=== PATIENT | male | born 1945 | race Caucasian/White ===

== ENCOUNTER 2020-04-21 10:04 | Observation (INO) | payer MEDICARE, BC ==
[~2020-04-21] VITALS: Ht 172.7 cm; Wt 84.3 kg
--- NOTE | 2020-04-21 10:19 | NUR ---
DR CHO AT W/ BLADDER SCANNER; NO URINE RETENTION. BLOOD TINGED DRAINAGE IN PÉREZ BAG. RECENT CT AT [facility] SHOWED PROSTATE MASS. PT DENIES PROSTATE CA. PT STATES PÉREZ WAS PLACED AT [facility] LAST SUNDAY; HAS HAD BAG IRRIGATED AND DRAINED FOR PAST THREE DAYS DUE TO CLOTS. NO CLOTS NOTED IN DRAINAGE BAG CURRENTLY. DENIES ABD PAIN. REPORTS LAST BLOOD DRAW WAS YESTERDAY. STATES HE RECENTLY STOPPED HCTZ ABOUT 4-5 DAYS AGO. Addendum: 04/21/20 at 1133 by PUNEET VO: HAND IRRIGATE PÉREZ/BLADDER
[2020-04-21] MEDS ORDERED: TAMS-11 PO (10:26)
[2020-04-21] MEDS ORDERED: AMLO-150 PO (10:26)
[2020-04-21] MEDS ORDERED: LISI-424 PO (10:26)
[2020-04-21] MEDS ORDERED: HYDROCHLOROTHIAZIDE (10:27)
[2020-04-21] MEDS ORDERED: SODIUM CHLORIDE FLUSH 10ML SYR IVF ONE (10:30)
--- NOTE | 2020-04-21 10:55 | NUR ---
125ML BLOOD TINGED URINE DRAINED FROM PÉREZ BAG; NO CLOTS NOTED.
[2020-04-21 11:02] LABS: BASOPHILS % (AUTO) 0 % (0-1); EOSINOPHILS % (AUTO) 0 % (1-7); LYMPHOCYTES % (AUTO) 6 % (22-44); MEAN CORPUSCULAR HEMOGLOBIN 36.9 pg (27.5-34.5); MEAN CORPUSCULAR HGB CONC 35.5 g/dL (33.2-36.2); MEAN PLATELET VOLUME 7.5 fL (7.4-10.4); MONOCYTES % (AUTO) 6 % (2-9); NEUTROPHILS % (AUTO) 88 % (42-75); PLATELET COUNT 250 x10^3/uL (130-400); RED BLOOD COUNT 3.54 x10^6/uL (4.38-5.82); RED CELL DISTRIBUTION WIDTH 18.2 % (9.4-14.8)
[2020-04-21 11:08] LABS: INTERNATIONAL NORMALIZED RATIO 1.09 (0.93-1.1); PROTHROMBIN TIME 11.5 Seconds (9.6-11.5)
[2020-04-21 11:10] LABS: ALBUMIN 3.8 g/dL (3.4-5.0); ANION GAP 10 mmol/L (5-15); CALCIUM 9.3 mg/dL (8.5-10.1); CHLORIDE 89 mmol/L (98-107)
[2020-04-21 11:14] LABS: ALANINE AMINOTRANSFERASE 57 U/L (12-78); ALKALINE PHOSPHATASE 84 U/L (45-117); BILIRUBIN,TOTAL 0.8 mg/dL (0.2-1.0); CREATININE 0.94 mg/dL (0.7-1.3); TOTAL PROTEIN 8.4 g/dL (6.4-8.2)
--- NOTE | 2020-04-21 11:25 | NUR ---
BLADDER/PÉREZ HAND IRRIGATED W/ 300ML STERILE WATER UNTIL SLIGHT BLOOD TINGED FLUID RETURNED. PT TOLERATED PROCEDURE WELL. NEW LEG BAG ATTACHED; PT EDUCATED ON LEG BAG CARE AND PLACEMENT
[2020-04-21 11:27] LABS: ANISOCYTOSIS 1+; MD MORPH REVIEW ONLY
[2020-04-21 11:28] LABS: <PLATELET ESTIMATE> ADEQUATE; <PLT MORPHOLOGY> NORMAL PLT MORPH
[2020-04-21 11:48] LABS: MICROSCOPIC INDICATED
--- NOTE | 2020-04-21 11:55 | NUR ---
Note shawn in EDM - 04/21/20 at 1528 by PUNEET PT REFUSED TX. WALKED TO FRONT OF DEPARTMENT TO LEAVE; GENO BECK NOTIFIED AND HAD DISCUSSION W/ PT REGARDING HER DICISION. DR ARREDONDO NOTIFIED. PT ELOPED.
--- NOTE | 2020-04-21 12:58 | NUR ---
PT ENDORSED TO [facility] [place].
--- NOTE | 2020-04-21 13:00 | NUR ---
PT RESTING QUIETLY ON GURNEY. PÉREZ DRAINING CLEAR BLOOD-TINGED URINE. DENIES PAIN.
--- NOTE | 2020-04-21 13:04 | NUR ---
DR CHO AT TO DISCUSS POC
--- NOTE | 2020-04-21 13:15 | NUR ---
200ML CLEAR BLOOD-TINGED URINE DRAINED FROM LEG BAG. PT INSTRUCTED ON LEG BAG USE AND CARE; UNDERSTANDING VERBALIZED.
--- NOTE | 2020-04-21 13:26 | NUR ---
LUNCH TRAY DELIVERED TO PT.
--- NOTE | 2020-04-21 14:00 | NUR ---
UNKNOWN PHYSICIAN AT BS
[2020-04-21] MEDS ORDERED: POTASSIUM CHLORIDE 20 MEQ TAB.ER.PRT PO ONE (14:30)
[2020-04-21] MEDS ORDERED: ACETAMINOPHEN 325 MG TABLET PO PRN (14:30)
[2020-04-21] MEDS ORDERED: DOCUSATE 100 MG CAPSULE PO PRN (14:30)
[2020-04-21] MEDS ORDERED: ONDANSETRON 2MG/ML, 2ML IVPush PRN (14:30)
[2020-04-21] MEDS ORDERED: hydrALAzine 20 MG/ML, 1ML IVPush PRN (14:30)
[2020-04-21] MEDS ORDERED: MELATONIN 5 MG TABLET PO PRN (14:30)
[2020-04-21] MEDS ORDERED: POTASSIUM CHLORIDE 20 MEQ TAB.ER.PRT ONE (14:37)
--- NOTE | 2020-04-21 14:41 | NUR ---
KDUR GIVEN PER EMAR
[2020-04-21 15:07] LABS: TROPONIN I < 0.015 ng/mL (0.000-0.045)
--- NOTE | 2020-04-21 15:36 | NUR ---
PT REPORT TO [facility] [place] FOR ROOM [phone]
[2020-04-21 15:55] VITALS: BP 126/80
[2020-04-21 16:34] LABS: OSMOLALITY,URINE 372 mOsm/kg (500-850)
[2020-04-21] MEDS: PHENAZOPYRIDINE 200 MG TABLET PO SCH ×2 (16:38→21:18)
[2020-04-21 19:39] VITALS: BP 128/78
[2020-04-21 20:50] LABS: TROPONIN I < 0.015 ng/mL (0.000-0.045)
[2020-04-21] MEDS: SODIUM CHLORIDE FLUSH 10ML SYR IVF SCH (21:00)
[2020-04-22 01:38] VITALS: BP 113/75
[2020-04-22 03:14] LABS: BASOPHILS % (AUTO) 1 % (0-1); EOSINOPHILS % (AUTO) 3 % (1-7); LYMPHOCYTES % (AUTO) 16 % (22-44); MEAN CORPUSCULAR HEMOGLOBIN 37.2 pg (27.5-34.5); MEAN CORPUSCULAR HGB CONC 35.5 g/dL (33.2-36.2); MEAN PLATELET VOLUME 7.6 fL (7.4-10.4); MONOCYTES % (AUTO) 9 % (2-9); NEUTROPHILS % (AUTO) 72 % (42-75); PLATELET COUNT 233 x10^3/uL (130-400); RED BLOOD COUNT 3.02 x10^6/uL (4.38-5.82); RED CELL DISTRIBUTION WIDTH 17.6 % (9.4-14.8)
[2020-04-22 03:15] LABS: MD NO
[2020-04-22 03:22] LABS: ANION GAP 6 mmol/L (5-15); CALCIUM 8.8 mg/dL (8.5-10.1); CHLORIDE 99 mmol/L (98-107); CREATININE 1.13 mg/dL (0.7-1.3)
[2020-04-22 03:23] LABS: ALANINE AMINOTRANSFERASE 44 U/L (12-78); ALBUMIN 3.1 g/dL (3.4-5.0)
[2020-04-22 03:25] LABS: ALKALINE PHOSPHATASE 68 U/L (45-117); BILIRUBIN,TOTAL 0.4 mg/dL (0.2-1.0); TOTAL PROTEIN 6.9 g/dL (6.4-8.2)
[2020-04-22 07:47] VITALS: BP 139/87
[2020-04-22] MEDS ORDERED: AMLODIPINE 5 MG TABLET PO SCH (09:00)
[2020-04-22] MEDS: PHENAZOPYRIDINE 200 MG TABLET PO SCH (09:00)
[2020-04-22] MEDS: SODIUM CHLORIDE FLUSH 10ML SYR IVF SCH (09:00)
[2020-04-22] MEDS ORDERED: PHEN-583 PO (09:57)
[2020-04-22] MEDS ORDERED: TAMSULOSIN 0.4 MG CAP.ER.24H PO SCH (21:00)
== END 2020-04-22 11:25 | disposition home or self-care (01) ==
LOC: ED 11:01 → INTOOBSV 13:31 → EDIP 13:31 → 5SO 15:49 → DCLOUNGE 04-22 11:21
PROVIDERS: ADMIT Hospitalist; ATTEND Hospitalist
DX: C61 Malignant neoplasm of prostate (principal); R55 Syncope and collapse; N42.89 Other specified disorders of prostate; N32.89 Other specified disorders of bladder; N02.9 Recurrent and persistent hematuria with unspecified morphologic changes; I11.0 Hypertensive heart disease with heart failure; I50.30 Unspecified diastolic (congestive) heart failure; E87.1 Hypo-osmolality and hyponatremia; E87.6 Hypokalemia; D75.89 Other specified diseases of blood and blood-forming organs; R73.02 Impaired glucose tolerance (oral); H91.90 Unspecified hearing loss, unspecified ear; Z87.891 Personal history of nicotine dependence; Z79.899 Other long term (current) drug therapy
CPT/HCPCS: 36415; 80053; 81001; 83036; 83735; 83930; 83935; 84100; 84295; 84439; 84443; 84484; 85014; 85018; 85025; 85610; 87086; 93005; 93306; 93880; 99285; G0378